=== PATIENT | female | born 2000 ===

== ENCOUNTER 2019-04-16 06:51 | Day surgery (SDC) | payer SELFPAY ==
--- NOTE | 2019-04-16 08:15 | Anesthesia Day of Surgery ---
Anesthesia Day of Surgery - Day of Surgery Patient Examined: Yes Patient H&P Reviewed: Yes Patient is NPO: Yes
--- NOTE | 2019-04-16 08:15 | Anesthesia Consultation ---
Anesthesia Consult and Med Hx Date of service: 04/16/19 - Airway Anesthetic Teeth Evaluation: Good ROM Head & Neck: Adequate Mental/Hyoid Distance: Adequate Mallampati Class: Class I Intubation Access Assessment: Good - Pulmonary Exam CTA: Yes - Cardiac Exam Cardiac Exam: RRR - Pre-Operative Health Status ASA Pre-Surgery Classification: ASA2 Proposed Anesthetic Plan: General - Pulmonary Hx Smoking: Yes - Central Nervous System Hx Psychiatric Problems: Yes - Other Systems Hx Substance Use: Yes (Marijuana every other day) Hx Cancer: No
[2019-04-16] MEDS ORDERED: DILAUDID IV PRN (08:16)
[2019-04-16] MEDS ORDERED: ZOFRAN IV PRN (08:16)
--- NOTE | 2019-04-16 08:17 | Short Stay Summary ---
Short Stay Documentation Date of service: 04/16/19 Narrative H&P: Patient is a 18-year-old female G0 LMP 03/29/2019 who presents for surgical evaluation of persistent pelvic pain and right ovarian cyst. Pelvic ultrasound showed the uterus to be normal 8 x 5 x 4 cm with a right hemorrhagic cyst. She now presents for laparoscopic right ovarian cystectomy. - History Principal diagnosis: Right ovarian cyst H&P: obtained from office Past Medical History: No medical history Past Surgical History: No surgical history Social history: no significant social history, single - Allergies and Medications Current Medications: Allergies No Known Allergies Allergy (Unverified 04/08/19 18:22) Home Medications Medication Instructions Recorded Confirmed Last Taken Type No Known Home Medications [No 04/08/19 04/08/19 Unknown History Reported Home Medications] Active Medications Lactated Ringer's (Lactated Ringers) 1,000 mls @ 100 mls/hr IV DIRECT JEN Midazolam HCl (Versed) 2 mg IV PREOP NR Stop: 04/16/19 23:59 - Physical exam General appearance: no acute distress Integumentary: no rash HEENT: Atraumatic Lungs: Clear to auscultation Breasts: deferred Heart: Regular rate Gastrointestinal: normal Female Genitourinary: deferred Rectal Exam: deferred Extremities: no ischemia, No edema Neurological: Normal gait, Normal speech - Brief post op/procedure progress note Date of procedure: 04/16/19 Pre-op diagnosis: 1. Pelvic pain 2. Right ovarian cyst Post-op diagnosis: same Procedure: Laparoscopic right ovarian cystectomy Anesthesia: GETA Findings: A normal uterus. Normal left ovary, a cystic right ovary, and normal tubes bilaterally. Surgeon: ANAYELI MYLES Estimated blood loss: minimal Pathology: list (right ovarian cyst) Specimen disposition: to lab Condition: stable - Hospital course Hospital course: Unremarkable. - Disposition Condition at discharge: Good Disposition: DC-[id number] TO HOME OR SELFCARE - Discharge Diagnoses (1) Right ovarian cyst Status: Resolved (2) Dermoid cyst of right ovary Status: Resolved Short Stay Discharge Plan Activity: no restrictions Diet: regular Wound: open to air, keep clean and dry Follow up with: DALLAS FLORES MD [Primary Care Provider] - 7 Days ANAYELI MYLES MD [Staff Physician] - 14 Days Prescriptions: Ibuprofen [Motrin] 800 mg PO Q8HR PRN #30 tablet PRN Reason: Pain, Mild (1-3) HYDROcodone/APAP 5-325 [[place] 5/325] 1 each PO Q6HR PRN #20 tablet PRN Reason: Pain
[2019-04-16] MEDS ORDERED: LACTATED RINGERS 1,000 ML IV SCH ×2 (09:00→17:00)
[2019-04-16] MEDS ORDERED: VERSED IV NR (09:00)
[2019-04-16] MEDS ORDERED: ANCEF/STERILE WATER 2 GM/20 ML 2 GM/20 ML SYRINGE IV NR (09:00)
[2019-04-16 09:17] LABS: Hematocrit 41.3 % (30.3-42.9); Hemoglobin 13.9 gm/dl (10.1-14.3)
[2019-04-16] MEDS ORDERED: DILAUDID ONE (09:52)
[2019-04-16] MEDS ORDERED: ZEMURON IV ONE (09:53)
[2019-04-16] MEDS ORDERED: XYLOCAINE MPF 2% ONE (09:53)
[2019-04-16] MEDS ORDERED: DIPRIVAN 10 MG/ML IV ONE (09:53)
[2019-04-16] MEDS ORDERED: MARCAINE 0.5% INFILTRATI ONE ×2 (10:04→10:42)
[2019-04-16] MEDS ORDERED: NACL 0.9% IR ONE (10:42)
[2019-04-16] MEDS ORDERED: ZOFRAN ONE (11:02)
[2019-04-16] MEDS ORDERED: BLOXIVERZ ONE (11:02)
[2019-04-16] MEDS ORDERED: ROBINUL ONE (11:02)
[2019-04-16] MEDS ORDERED: TORADOL ONE (11:02)
--- NOTE | 2019-04-16 11:50 | Operative Report ---
Operative Report Operative Report: Date of procedure: 04/16/2019 Pre-operative diagnosis: 1. Pelvic pain 2. Right ovarian cyst Post-operative diagnosis: Same with dermoid cyst Procedure name(s): Laparoscopic right ovarian cystectomy Surgeon: Agustin Sue MD Gis Software Engineer: None Anesthesia: Gen. endotracheal intubation EBL: Minimal less than 10 mL's Findings: A normal uterus with normal left ovary and a cystic right ovary. Normal tubes bilaterally. Procedure: After the patient was correctly identified, she was prepped and draped in the usual sterile fashion and placed in dorsolithotomy position. First the bladder was emptied using a straight catheter, and the speculum was placed in the vaginal vault and the anterior lip of the cervix was grasped with a single-tooth tenaculum. The uterine manipulator was then placed and the tenaculum and speculum were removed. Attention was then turned to the abdomen where first a periumbilical incision was made using a skin knife, and the Optiview trocar was inserted under direct visualization. After an adequate amount of abdominal insufflation, visualization of the pelvic organs found the uterus to be umesh, the left ovary was normal and the right ovary was cystic. Both fallopian tubes are normal. A suprapubic and a right lateral incision was made through which 5 mm trochars were placed in order to aid in manipulation of the pelvic organs. The right ovary was grasped and the tripolar cautery was used to excise the cystic portion of the ovary. The cyst consisted off ye llowish fluid and hair - suggestive of a dermoid tumor. The ovarian cyst was completely excised and removed using the Endopouch and sent to pathology. Copious amounts of irrigation was then performed. The ovarian cystectomy site was made hemostatic using Bovie cautery and the Tisseel sealant. At this point the procedure was considered complete. All instruments removed from the abdomen. The abdomen was deflated, and the periumbilical incision was closed using 0 Vicryl suture in a [id number] configuration of the fascia followed by 4-0 Monocryl suture in subcuticular fashion on the skin. The suprapubic and right lateral incisions were closed in similar fashion. Each incision was infiltrated using 0.5% Marcaine solution. The uterine manipulator was removed. The patient tolerated the procedure well and was transferred to recovery room in stable condition.
[2019-04-16] MEDS ORDERED: NORCO 5/325 PO PRN (12:30)
[2019-04-16 13:01] VITALS: BP 113/57
--- NOTE | 2019-04-16 15:33 | Post Anesthesia Evaluation ---
- Post Anesthesia Evaluation Patient Participated: Yes Airway Patent: Yes Stable Respiratory Function: Yes Nausea/Vomiting: No Temp > 96.8F: Yes Pain Manageable: Yes Adequeate Hydration: Yes Anesthesia Complications: No
== END 2019-04-16 13:00 | disposition home or self-care (01) ==
LOC: OR 06:51
PROVIDERS: ATTEND Obstetrics & Gynecology
DX: D27.0 Benign neoplasm of right ovary (principal); G43.909 Migraine, unspecified, not intractable, without status migrainosus; F32.9 Major depressive disorder, single episode, unspecified; F41.9 Anxiety disorder, unspecified; Z79.899 Other long term (current) drug therapy
CPT/HCPCS: 36415; 58662; 81025; 85014; 85018; 88305; C9250; J0690; J1170; J1885; J2250; J2405; J2704; J2710; J7120